=== PATIENT | female | born 1975 | race Caucasian/White ===

== ENCOUNTER → 2024-07-12 | Outpatient (CLI) | payer SELFPAY ==
--- NOTE | 2024-07-12 11:45 | EMB_PTH ---
PATIENT: KATI CABALLERO LOC: [facility] U#:[id number] AGE/SX: 48/F ROOM: RE07/12/[address]: Dr. Leigh Moody DO : 1975 BED: DIS: 07/12/2024 SPEC #: [id number] RECD: 07/12/24 17:14 STATUS: JYOTSNA JULIANA #: [id number] EDY: 07/12/24 11:[address]: Leigh Moody DEPT: SURGICAL PATHOLOGY RECD BY: Jackie Cain Tissues: Endometrium, NOS Procedures: Surgery Specimen Level IV HEADER OPERATION: Endometrial biopsy PRE-OP DIAGNOSIS: Abnormal uterine bleeding TISSUE SUBMITTED: Endometrial lining MICROSCOPIC DIAGNOSIS Endometrium, biopsy: * Mildly disordered proliferative endometrium. * Scant benign endocervical mucosa. MICROSCOPIC DESCRIPTION Slides are reviewed. GROSS DESCRIPTION Received in formalin labeled with the patient's name Kati Caballero and is not designated are multiple pink-trevino, ragged, irregularly-shaped soft tissue fragments and mucus that aggregate to 3.0 x 3.0 x 0.2 cm. The fragments are totally submitted.KRYSTYNA. 07/13/2024 TC: [id number]
== END | disposition home or self-care (01) ==
LOC: LABSPEC 13:20
PROVIDERS: Referring Provider Obstetrics & Gynecology; Visit Provider Obstetrics & Gynecology
DX: N93.9 Abnormal uterine and vaginal bleeding, unspecified (principal); N85.01 Benign endometrial hyperplasia
CPT/HCPCS: 88305